=== PATIENT | female | born 1990 | race Hispanic/Latino ===

== ENCOUNTER 2018-06-11 20:36 | Emergency (ER) | payer OTHER ==
[~2018-06-11] VITALS: Ht 144.8 cm; Wt 90.7 kg
== END 2018-06-11 21:49 | disposition left against medical advice (07) ==
LOC: ER 20:36
DX: M79.622 Pain in left upper arm (principal)

== ENCOUNTER 2024-02-10 19:41 | Emergency (ER) | payer OTHER ==
[~2024-02-10] VITALS: Ht 144.8 cm; Wt 90.7 kg
[~2024-02-10 19:41] MED LIST: NAPROSYN500 MG PO
[2024-02-10 21:12] LABS: BASOPHILS % 0.3 % (0.0-1.0); EOSINOPHILS # (AUTO) 0.3 (0.0-0.4); EOSINOPHILS % 2.9 % (0.0-6.0); HEMOGLOBIN 12.6 g/dL (12.0-16.0); LYMPHOCYTES # (AUTO) 3.7 (1.0-3.2); LYMPHOCYTES % 33.9 % (18.0-39.1); MEAN CORPUSCULAR HGB CONC 31.5 g/dL (31-35); MEAN CORPUSCULAR VOLUME 85.7 fL (81-99); MONOCYTES % 9.3 % (4.4-11.3); NEUTROPHILS # (AUTO) 5.8 (2.1-6.9); NEUTROPHILS % 53.1 % (38.7-80.0); PLATELET COUNT 283 x10e3/uL (140-360); RED BLOOD COUNT 4.67 x10e6/uL (3.6-5.1); RED CELL DISTRIBUTION WIDTH 14.4 % (11.7-14.4); WHITE BLOOD COUNT 10.94 x10e3/uL (4.8-10.8)
[2024-02-10 21:24] LABS: ALANINE AMINOTRANSFERASE 30 IU/L (0-55); ALBUMIN 3.9 g/dL (3.5-5.0); ALKALINE PHOSPHATASE 89 IU/L (40-150); ANION GAP 11.7 mmol/L (8-16); BILIRUBIN,TOTAL 0.3 mg/dL (0.2-1.2); BLOOD UREA NITROGEN 14 mg/dL (7-26); BUN/CREATININE RATIO 16 (6-25); CALCIUM 9.7 mg/dL (8.4-10.2); CARBON DIOXIDE 26 mmol/L (22-29); CHLORIDE 105 mmol/L (98-107); CREATINE KINASE 102 IU/L (29-168); EST GLOMERULAR FILTRATION RATE 86 ML/MIN (>=60); GLUCOSE 102 mg/dL (74-118); POTASSIUM 3.7 mmol/L (3.5-5.1); SODIUM 139 mmol/L (136-145); TOTAL PROTEIN 7.7 g/dL (6.5-8.1)
[2024-02-10 21:37] LABS: TROPONIN I < 0.05 ng/mL (0.0-0.40)
[2024-02-10 21:53] LABS: CLARITY,URINE TURBID (CLEAR); COLOR,URINE YELLOW (YELLOW); LEUKOCYTE ESTERASE ,URINE NEGATIVE (NEGATIVE); NITRITE,URINE NEGATIVE (NEGATIVE); PH,URINE 5.5 (5 - 7); PROTEIN,URINE DIPSTICK 1+ (NEGATIVE)
[2024-02-10 21:54] LABS: BILIRUBIN,URINE NEGATIVE (NEGATIVE); GLUCOSE, URINE NEGATIVE (NEGATIVE); KETONES,URINE NEGATIVE (NEGATIVE); URINE UROBILINOGEN 1 mg/dL (0.2 - 1)
[2024-02-10 21:56] LABS: AMORPHOUS SEDIMENT,URINE MODERATE (FEW); BACTERIA,URINE MODERATE /HPF; EPITHELIAL CELLS,URINE MODERATE /LPF; RBC,URINE 0-5 /HPF (0-5); WBC,URINE (MAN) 0-5 /HPF (0-5)
[2024-02-10] MEDS ORDERED: ONDANSETRON ODT4 MG SL (23:10)
[2024-02-10] MEDS ORDERED: PANTOPRAZOLE SO40 MG PO (23:10)
[2024-02-10 23:20] VITALS: PULSE 76; RESP 16; TEMP 98.4; O2SAT 97
== END 2024-02-10 23:26 | disposition home or self-care (01) ==
LOC: ER 19:57
DX: R10.13 Epigastric pain (principal); K29.70 Gastritis, unspecified, without bleeding; M54.50 Low back pain, unspecified; D64.9 Anemia, unspecified
CPT/HCPCS: 36415; 71045; 80053; 81001; 82550; 83690; 84484; 85025; 93005; 99284

== ENCOUNTER 2025-01-11 23:09 | Emergency (ER) | payer OTHER ==
[~2025-01-11] VITALS: Ht 144.8 cm; Wt 116.6 kg
[~2025-01-11 23:09] MED LIST changes: +ONDANSETRON ODT4 MG SL; +PANTOPRAZOLE SO40 MG PO
[2025-01-11 23:12] VITALS: PULSE 74; RESP 17; TEMP 98.3
[2025-01-11] MEDS: ONDANSETRON HCL 4 MG ORAL DISINTEGRATING TAB PO STA (23:53)
[2025-01-12 00:19] LABS: LEUKOCYTE ESTERASE ,URINE NEGATIVE (NEGATIVE); PROTEIN,URINE DIPSTICK TRACE (NEGATIVE); URINE UROBILINOGEN 0.2 mg/dL (0.2 - 1)
[2025-01-12] MEDS: KETOROLAC TROMETHAMINE 60 MG/2 ML VIAL IM STA (00:25)
[2025-01-12 00:35] LABS: EPITHELIAL CELLS,URINE MODERATE /LPF; WBC,URINE (MAN) 0-5 /HPF (0-5)
[2025-01-12] MEDS ORDERED: AMOX TR-K CLV1 EAC2 PO (01:53)
[2025-01-12] MEDS ORDERED: DICYCLOMINE HCL10 MG PO (01:53)
[2025-01-12 01:58] VITALS: BP 111/49; PULSE 64; RESP 17; TEMP 98.3; O2SAT 100
== END 2025-01-12 02:05 | disposition home or self-care (01) ==
LOC: ER 23:15
DX: R10.30 Lower abdominal pain, unspecified (principal); K52.9 Noninfective gastroenteritis and colitis, unspecified; R11.0 Nausea; M54.50 Low back pain, unspecified; D64.9 Anemia, unspecified
CPT/HCPCS: 74176; 81001; 81025; 99284; J1885; Q0162